=== PATIENT | male | born 1990 | race Caucasian/White ===

== ENCOUNTER 2018-03-14 12:29 | Emergency (ER) | payer OTHER ==
[2018-03-14] MEDS ORDERED: ONDANSETRON ODT 4 MG TABLET TL STA (14:16)
--- NOTE | 2018-03-14 14:19 | ED Physician Documentation ---
History of Present Illness - Stated complaint Stated Complaint: NAUSEA/V/D - Chief complaint Chief Complaint: Abd Pain - Additonal information Additional information: hx from pt healthy [place] male ate left over pizza developed NVD no blood no fever no sig abd pain went to sick call and told no appt and told he needed to come to the ED for SIQ paperwork Review of Systems Constitutional: denies: Fever, Chills Cardiac: denies: Chest pain / pressure Respiratory: denies: Dyspnea GI: reports: Nausea, Vomiting, Diarrhea. denies: Abdominal Pain, Hematemesis, Bloody / black stool Immunocompromised: denies: Immunocompromised PD PAST MEDICAL HISTORY - Past Medical History Past Medical History: No Cardiovascular: None Respiratory: None Neuro: None Endocrine/Autoimmune: None GI: None : None HEENT: None Psych: None Musculoskeletal: None Derm: None - Past Surgical History Past Surgical History: No - Present Medications Home Medications: Ambulatory Orders Medication Instructions Recorded Confirmed Ondansetron Odt [Zofran] 4 mg TL Q6H PRN #10 tablet 03/14/18 - Allergies Allergies/Adverse Reactions: Allergies Allergy/AdvReac Type Severity Reaction Status Date / Time No Known Drug Allergies Allergy Verified 03/14/18 12:38 - Social History Does the pt smoke?: No Smoking Status: Never smoker Does the pt drink ETOH?: No Does the pt have substance abuse?: No - Immunizations Immunizations are current?: Yes - POLST Patient has POLST: No PD ED PE NORMAL - Vitals Vital signs reviewed: Yes - Neck Neck: Supple, no meningeal sign - Cardiac Cardiac: RRR - Respiratory Respiratory: No respiratory distress, Clear bilaterally - Abdomen Abdomen: Non tender - Neuro Neuro: Alert and oriented X 3 Results - Vitals Vitals: Vital Signs - 24 hr 03/14/18 03/14/18 12:36 14:20 Temperature 36.3 C L 36.6 C Heart Rate 81 80 Respiratory 16 16 Rate Blood Pressure 127/84 H 122/86 H O2 Saturation 97 100 Oxygen O2 Source Room air PD MEDICAL DECISION MAKING - Sepsis Event Vital Signs: Vital Signs - 24 hr 03/14/18 03/14/18 12:36 14:20 Temperature 36.3 C L 36.6 C Heart Rate 81 80 Respiratory 16 16 Rate Blood Pressure 127/84 H 122/86 H O2 Saturation 97 100 Oxygen O2 Source Room air Departure - Departure Disposition: Home, Self Care Clinical Impression: Food poisoning Qualifiers: Encounter type: initial encounter Injury intent: accidental or unintentional Qualified Code(s): T62.91XA - Toxic effect of unspecified noxious substance eaten as food, accidental (unintentional), initial encounter Instructions: ED Food Poison Or Gastroenteritis Follow-Up: BRAD Márquez [Provider Group] Prescriptions: Ondansetron Odt [Zofran] 4 mg TL Q6H PRN #10 tablet PRN Reason: Nausea / Vomiting Forms: Activity restrictions Discharge Date/Time: 03/14/18 14:31
[2018-03-14 14:31] VITALS: BP 122/86
== END 2018-03-14 14:31 | disposition home or self-care (01) ==
LOC: ED 12:29
DX: T62.91XA Toxic effect of unspecified noxious substance eaten as food, accidental (unintentional), initial encounter (principal); R11.2 Nausea with vomiting, unspecified; R19.7 Diarrhea, unspecified
CPT/HCPCS: 99282; 99283; Q0162

== ENCOUNTER 2018-03-16 11:58 | Emergency (ER) | payer OTHER ==
[2018-03-16 12:08] VITALS: BP 121/72
--- NOTE | 2018-03-16 13:20 | ED Physician Documentation ---
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 He was seen here 2 days ago because of vomiting and diarrhea. He was prescribed Zofran at that time, and his symptoms improved. He was better yesterday, but this morning he had 2 more episodes of vomiting. He denies abdominal pain, fever, or diarrhea. He did not take Zofran this morning. His commanding officer told him to come to the emergency department for SIQ paperwork. Review of Systems Constitutional: denies: Fever Nose: denies: Congestion Throat: denies: Sore throat Cardiac: denies: Chest pain / pressure Respiratory: denies: Dyspnea, Cough GI: reports: Vomiting. denies: Abdominal Pain, Diarrhea : denies: Dysuria Skin: denies: Rash Musculoskeletal: denies: Back pain Neurologic: denies: Headache PD PAST MEDICAL HISTORY - Past Medical History Cardiovascular: None Respiratory: None Neuro: None Endocrine/Autoimmune: None GI: None : None HEENT: None Psych: None Musculoskeletal: None Derm: None - Past Surgical History Past Surgical History: No - Present Medications Home Medications: Ambulatory Orders Medication Instructions Recorded Confirmed Ondansetron Odt [Zofran] 4 mg TL Q6H PRN #10 tablet 03/14/18 Ondansetron Odt [Zofran] 4 mg TL Q6H PRN #10 tablet 03/16/18 - Allergies Allergies/Adverse Reactions: Allergies Allergy/AdvReac Type Severity Reaction Status Date / Time No Known Drug Allergies Allergy Verified 03/16/18 12:08 - Social History Does the pt smoke?: No Smoking Status: Never smoker Does the pt drink ETOH?: No Does the pt have substance abuse?: No - Immunizations Immunizations are current?: Yes - POLST Patient has POLST: No PD ED PE NORMAL - Vitals Vital signs reviewed: Yes (normal) - General General: Alert and oriented X 3, No acute distress, Well developed/nourished - HEENT HEENT: Atraumatic, Moist mucous membranes, Pharynx benign - Neck Neck: Supple, no meningeal sign, No adenopathy - Cardiac Cardiac: RRR, No murmur - Respiratory Respiratory: No respiratory distress, Clear bilaterally - Abdomen Abdomen: Normal bowel sounds, Soft, Non tender, No organomegaly - Back Back: No CVA TTP - Derm Derm: No rash - Extremities Extremities: No edema - Neuro Neuro: Alert and oriented X 3, No motor deficit, Normal speech Results - Vitals Vitals: Vital Signs - 24 hr 03/16/18 03/16/18 12:06 13:23 Temperature 36.4 C L Heart Rate 93 81 Respiratory 20 16 Rate Blood Pressure 121/72 121/72 O2 Saturation 97 99 Oxygen O2 Source Room air PD MEDICAL DECISION MAKING - ED course Complexity details: reviewed old records, considered differential, d/w patient ED course: The patient's presentation is consistent with viral gastroenteritis, versus food intolerance. His examination does not suggest an acute abdomen or dehydration. He is being discharged with prescription for Zofran, and I wrote a work release note for him. I discussed with him potentially worrisome signs or s ymptoms that should prompt reevaluation in the emergency department. - Sepsis Event Vital Signs: Vital Signs - 24 hr 03/16/18 03/16/18 12:06 13:23 Temperature 36.4 C L Heart Rate 93 81 Respiratory 20 16 Rate Blood Pressure 121/72 121/72 O2 Saturation 97 99 Oxygen O2 Source Room air Departure - Departure Disposition: 01 Home, Self Care Clinical Impression: Vomiting Condition: Stable Instructions: ED Nausea Vomiting Follow-Up: BRAD Márquez [Provider Group] Prescriptions: Ondansetron Odt [Zofran] 4 mg TL Q6H PRN #10 tablet PRN Reason: Nausea / Vomiting Comments: Drink plenty of fluids. Use Zofran as prescribed if needed for nausea. Follow-up with your primary physician within 1 week. Call to schedule appointment. Return to the emergency department if you develop increasing abdominal pain, persistent vomiting, dehydration, or otherwise worsening symptoms. Forms: Activity restrictions Discharge Date/Time: 03/16/18 13:24
== END 2018-03-16 13:24 | disposition home or self-care (01) ==
LOC: ED 11:58
DX: R11.10 Vomiting, unspecified (principal)
CPT/HCPCS: 99283

== ENCOUNTER 2018-03-29 12:27 | Emergency (ER) | payer OTHER ==
--- NOTE | 2018-03-29 14:40 | ED Physician Documentation ---
PD HPI NVD - Stated complaint Stated Complaint: D/V - Chief complaint Chief Complaint: Abd Pain - History obtained from History obtained from: Patient - History of Present Illness Timing - onset: Today Timing - details: Abrupt onset (awoke early this morning feeling anxious, with nausea and vomited couple of times. 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 He states he is had the nausea and vomiting with anxiety feeling happen before watch 2 or 3 other times in the last few months. He has not had any episodes of nausea and vomiting aside from that. He has not gone on any watch without feeling that way. He denies any stomach pains or unusual stools the last few days. He has a normal appetite the last several days.) Associated symptoms: No: Fever, Abdominal pain, Hematemesis, Weight loss Contributing factors: Other (feeling anxious about watch duty today.). No: Sick contact, Bad food, Recent antibiotics, Alcohol use Similar symptoms before: No diagnosis (similar symptoms prior to watch duty a few times over the past few months.) Recently seen: Not recently seen Review of Systems Constitutional: denies: Fever, Chills, Myalgias Nose: denies: Rhinorrhea / runny nose, Congestion Throat: denies: Sore throat Respiratory: denies: Cough GI: reports: Nausea, Vomiting. denies: Abdominal Pain, Diarrhea, Bloody / black stool : denies: Dysuria, Frequency Neurologic: denies: Generalized weakness, Near syncope Psychiatric: reports: Anxiety. denies: Depressed Endocrine: denies: Weight loss, Weight gain, Easy bruising / bleeding Immunocompromised: denies: Immunocompromised PD PAST MEDICAL HISTORY - Past Medical History Cardiovascular: None Respiratory: None Neuro: None Endocrine/Autoimmune: None GI: None : None HEENT: None Psych: None Musculoskeletal: None Derm: None - Past Surgical History Past Surgical History: No - Present Medications Home Medications: Ambulatory Orders Medication Instructions Recorded Confirmed Ondansetron Odt [Zofran] 4 mg TL Q6H PRN #10 tablet 03/14/18 Ondansetron Odt [Zofran] 4 mg TL Q6H PRN #10 tablet 03/16/18 - Allergies Allergies/Adverse Reactions: Allergies Allergy/AdvReac Type Severity Reaction Status Date / Time No Known Drug Allergies Allergy Verified 03/29/18 12:47 - Social History Does the pt smoke?: No Smoking Status: Never smoker Does the pt drink ETOH?: No Does the pt have substance abuse?: No - Immunizations Immunizations are current?: Yes - POLST Patient has POLST: No PD ED PE NORMAL - Vitals Vital signs reviewed: Yes - General General: Alert and oriented X 3, No acute distress, Well developed/nourished - HEENT HEENT: Moist mucous membranes, Pharynx benign - Neck Neck: Supple, no meningeal sign, No adenopathy - Cardiac Cardiac: RRR, No murmur - Respiratory Respiratory: Clear bilaterally - Abdomen Abdomen: Normal bowel sounds, Soft, Non tender, Non distended, No organomegaly - Male Male : Deferred - Rectal Rectal: Deferred - Back Back: No CVA TTP - Derm Derm: Normal color, Warm and dry - Neuro Neuro: Alert and oriented X 3, No motor deficit, Normal speech Results - Vitals Vitals: Vital Signs - 24 hr 03/29/18 12:45 Temperature 36.8 C Heart Rate 98 Respiratory 15 Rate Blood Pressure 135/90 H O2 Saturation 98 Oxygen O2 Source Room air PD MEDICAL DECISION MAKING - ED course Complexity details: reviewed results, considered differential (Seems anxiety related without having symptoms suggest gastroenteritis. He is given a note for work duty today. He is to follow-up with his primary care regarding any possible modification of duty or medications to assist with anxiety.), d/w patient Departure - Departure Disposition: 01 Home, Self Care Clinical Impression: Anxiety Nausea and vomiting Qualifiers: Vomiting type: unspecified Vomiting Intractability: non-intractable Qualified Code(s): R11.2 - Nausea with vomiting, unspecified Condition: Stable Record reviewed to determine appropriate education?: Yes Instructions: ED Nausea Vomiting Follow-Up: BRAD Márquez [Provider Group] Comments: Follow-up tomorrow as planned regarding any further treatment necessary or duty modification. Forms: Activity restrictions Discharge Date/Time: 03/29/18 15:15
[2018-03-29 15:16] VITALS: BP 130/88
== END 2018-03-29 15:15 | disposition home or self-care (01) ==
LOC: ED 12:27
DX: F41.9 Anxiety disorder, unspecified (principal); R11.2 Nausea with vomiting, unspecified
CPT/HCPCS: 99282; 99283

== ENCOUNTER 2018-04-06 11:37 | Emergency (ER) | payer OTHER ==
[2018-04-06 11:45] VITALS: BP 118/81
--- NOTE | 2018-04-06 14:06 | ED Physician Documentation ---
History of Present Illness - Stated complaint Stated Complaint: POST ANXIETY ATTACK - Chief complaint Chief Complaint: General - History obtained from History obtained from: Patient - History of Present Illness Timing: Today Pain level max: 0 Pain level now: 0 Improved by: rest Worsened by: stress - Additonal information Additional information: Patient is a 27-year-old male, active duty [place] presents today after a panic attack. Has had anxiety for the past several months. Sees a psychiatrist on Monday. Is not currently on medications. His command told him to come to the emergency department for a second [place]'s note. He has no complaints at this time. No chest pain, no shortness of breath. Currently asymptomatic. Review of Systems Constitutional: denies: Fever, Chills Respiratory: denies: Cough GI: denies: Nausea, Vomiting, Diarrhea Skin: denies: Rash Musculoskeletal: denies: Neck pain Neurologic: denies: Headache PD PAST MEDICAL HISTORY - Past Medical History Past Medical History: No Cardiovascular: None Respiratory: None Neuro: None Endocrine/Autoimmune: None GI: None : None HEENT: None Psych: Anxiety Musculoskeletal: None Derm: None - Past Surgical History Past Surgical History: No - Allergies Allergies/Adverse Reactions: Allergies Allergy/AdvReac Type Severity Reaction Status Date / Time No Known Drug Allergies Allergy Verified 04/06/18 11:45 - Social History Does the pt smoke?: No Smoking Status: Never smoker Does the pt drink ETOH?: No Does the pt have substance abuse?: No - Immunizations Immunizations are current?: Yes - POLST Patient has POLST: No PD ED PE NORMAL - Vitals Vital signs reviewed: Yes - General General: Alert and oriented X 3, No acute distress - HEENT HEENT: Moist mucous membranes - Neck Neck: Supple, no meningeal sign - Cardiac Cardiac: RRR - Respiratory Respiratory: No respiratory distress, Clear bilaterally - Abdomen Abdomen: Soft, Non tender, Non distended - Derm Derm: Warm and dry - Neuro Neuro: Alert and oriented X 3 - Psych Psych: Normal mood, Normal affect Results - Vitals Vitals: Vital Signs - 24 hr 04/06/18 11:41 Temperature 36.3 C L Heart Rate 90 Respiratory 16 Rate Blood Pressure 118/81 H O2 Saturation 97 Oxygen O2 Source Room air PD MEDICAL DECISION MAKING - ED course Complexity details: considered differential, d/w patient ED course: Patient with a panic attack earlier today. Currently asymptomatic. Will follow up with his psychiatrist on Monday as scheduled. No emergency medical condition at this time. Patient counseled regarding signs and symptoms for which I believe and urgent re-evaluation would be necessary. Patient with good understanding of and agreement to plan and is comfortable going home at this time This document was made in part using voice recognition software. While efforts are made to proofread this document, sound alike and grammatical errors may occur. Departure - Departure Disposition: 01 Home, Self Care Clinical Impression: Panic attack Condition: Good Instructions: ED Panic Attack Follow-Up: your,doctor on monday as scheduled. [Other] Comments: Return if you worsen. Follow up with your psychiatrist on Monday. Forms: Activity restrictions Discharge Date/Time: 04/06/18 14:09
== END 2018-04-06 14:09 | disposition home or self-care (01) ==
LOC: ED 11:37
DX: F41.0 Panic disorder [episodic paroxysmal anxiety] (principal)
CPT/HCPCS: 99282; 99283

== ENCOUNTER 2018-04-12 11:58 | Emergency (ER) | payer OTHER ==
--- NOTE | 2018-04-12 13:15 | ED Physician Documentation ---
PD HPI MHE - Stated complaint Stated Complaint: PANICK ATTACK - Chief complaint Chief Complaint: MHE - History obtained from History obtained from: Patient - History of Present Illness Primary symptom: Anxiety. No: Suicidal ideation, Depression Timing - onset: Today (has feeling of anxiety and nausea when getting ready to go to Duty Watch. [place] okay prior to that. Has had similar with Duty Watch in recent past. Has been excused from the Duty. Has appt with Psychiatrist tomorrow.) Contributing factors: Work. No: Substance abuse - ETOH, Substance abuse - drugs Similar symptoms before: Diagnosis (panic attack) Review of Systems Constitutional: denies: Fever Nose: denies: Rhinorrhea / runny nose, Congestion Throat: denies: Sore throat Respiratory: denies: Cough GI: reports: Nausea. denies: Vomiting Musculoskeletal: denies: Neck pain, Back pain PD PAST MEDICAL HISTORY - Past Medical History Past Medical History: No Cardiovascular: None Respiratory: None Neuro: None Endocrine/Autoimmune: None GI: None : None HEENT: None Psych: Anxiety Musculoskeletal: None Derm: None - Past Surgical History Past Surgical History: No - Present Medications Home Medications: Ambulatory Orders Medication Instructions Recorded Confirmed No Known Home Medications 04/12/18 04/12/18 - Allergies Allergies/Adverse Reactions: Allergies Allergy/AdvReac Type Severity Reaction Status Date / Time No Known Drug Allergies Allergy Verified 04/06/18 11:45 - Social History Does the pt smoke?: No Smoking Status: Never smoker Does the pt drink ETOH?: No Does the pt have substance abuse?: No - Immunizations Immunizations are current?: Yes - POLST Patient has POLST: No PD ED PE NORMAL - Vitals Vital signs reviewed: Yes - General General: Alert and oriented X 3, No acute distress, Well developed/nourished - Cardiac Cardiac: RRR, No murmur - Respiratory Respiratory: Clear bilaterally - Derm Derm: Normal color, Warm and dry - Neuro Neuro: Alert and oriented X 3, No motor deficit, Normal speech - Psych Psych: Normal mood, Normal affect Results - Vitals Vitals: Oxygen O2 Source Room air PD MEDICAL DECISION MAKING - ED course Complexity details: reviewed old records, considered differential (having anxiety and nausea related to Duty Watch, and given note for off duty today. Has appt with Psychiatry tomorrow. ), d/w patient Departure - Departure Disposition: Home, Self Care Clinical Impression: Anxiety reaction Condition: Stable Record reviewed to determine appropriate education?: Yes Instructions: ED Panic Attack Follow-Up: BRAD Márquez [Provider Group] Comments: Rest today. No Watch duty. See your provider tomorrow as planned. Forms: Activity restrictions Discharge Date/Time: 04/12/18 13:21
[2018-04-12 13:22] VITALS: BP 130/86
== END 2018-04-12 13:21 | disposition home or self-care (01) ==
LOC: ED 11:58
DX: F41.9 Anxiety disorder, unspecified (principal)
CPT/HCPCS: 99283